=== PATIENT | female | born 1970 | race Caucasian/White ===

== ENCOUNTER 2021-04-21 13:00 | Inpatient (IN) | payer BC ==
[~2021-04-21] VITALS: Ht 170.2 cm; Wt 62.6 kg
--- NOTE | 2021-04-21 13:11 | NUR ---
PT c/o high blood pressure, denies any pain, 174/115, took all bp meds also bilateral hand tingling. PT A/OX4. TOLERATING R/A WELL WITH NO SOB. CONNECTED PT TO POX AND MONITOR.
--- NOTE | 2021-04-21 13:33 | NUR ---
DR TELLO AT BEDSIDE
--- NOTE | 2021-04-21 14:05 | NUR ---
BP 209/108, MD AWARE
[2021-04-21 14:18] LABS: BASOPHILS % (AUTO) 0.3 % (0.0-2.0); EOSINOPHILS % (AUTO) 0.2 % (0.0-6.0); HEMATOCRIT 44 % (33-45); LYMPHOCYTES # (AUTO) 1.3 K/uL (0.8-4.8); LYMPHOCYTES % (AUTO) 12.1 % (20.0-44.0); MEAN CORPUSCULAR HGB CONC 34 g/dl (31.0-36.0); MEAN CORPUSCULAR VOLUME 91 fL (82-100); MONOCYTES # (AUTO) 0.8 K/uL (0.1-1.30); MONOCYTES % (AUTO) 7.2 % (2.0-12.0); NEUTROPHILS # (AUTO) 8.7 K/uL (1.8-8.9); NEUTROPHILS % (AUTO) 80.2 % (43.0-81.0); PLATELET COUNT (AUTO) 310 K/uL (150-450); RED BLOOD CELL COUNT(AUTO) 4.85 MIL/uL (4.0-5.2); WHITE BLOOD COUNT (AUTO) 10.9 K/uL (4.3-11.0)
[2021-04-21] MEDS ORDERED: hydrALAZINE HCL IV 20 MG VIAL ONE (14:21)
[2021-04-21] MEDS ORDERED: hydrALAZINE HCL IV 20 MG VIAL IV ONE (14:30)
[2021-04-21] MEDS ORDERED: ONDANSETRON HCL/PF - ER 4 MG/2 ML VIAL IV ONE (14:30)
[2021-04-21] MEDS ORDERED: ONDANSETRON HCL/PF 4 MG/2 ML VIAL ONE ×2 (14:30→21:40)
[2021-04-21 14:43] LABS: CALCIUM, SERUM 9.9 mg/dL (8.5-10.1); CARBON DIOXIDE 32 mmol/L (21-32); CHLORIDE 95 mmol/L (98-107); CREATININE 0.7 mg/dL (0.6-1.3); GLUCOSE 87 mg/dL (74-106); POTASSIUM 3.6 mmol/L (3.5-5.1); SODIUM SERUM 137 mmol/L (136-145); UREA NITROGEN, BLOOD 9 mg/dL (7-18)
--- NOTE | 2021-04-21 15:41 | NUR ---
made md aware of current BP.
[2021-04-21] MEDS ORDERED: LABETALOL HCL IV 100MG VIAL ONE ×2 (15:47→17:36)
--- NOTE | 2021-04-21 15:51 | NUR ---
wheeled out via wheelchair by [employer] for ct scan
[2021-04-21] MEDS ORDERED: LABETALOL 20 MG/4 ML VIAL IV ONE ×3 (16:00→18:00)
[2021-04-21] MEDS ORDERED: TRAM50TA2 PO (16:05)
[2021-04-21] MEDS ORDERED: VALS320T16 PO (16:05)
[2021-04-21] MEDS ORDERED: LIRA0.6P2 SQ (16:05)
[2021-04-21] MEDS ORDERED: TEMA30CA PO (16:05)
[2021-04-21] MEDS ORDERED: LABE100T5 PO (16:05)
[2021-04-21] MEDS ORDERED: DULO30CA52 PO (16:05)
[2021-04-21] MEDS ORDERED: TIZA4CAP PO (16:05)
[2021-04-21] MEDS ORDERED: ALPRAZOLAM 0.5 MG TABLET ONE (16:23)
[2021-04-21] MEDS ORDERED: ALPRAZOLAM 0.5 MG TABLET PO ONE (16:30)
--- NOTE | 2021-04-21 17:49 | NUR ---
COVID AG SWAB DONE AND SENT TO LAB
[2021-04-21] MEDS ORDERED: TRAMADOL HCL 50 MG TABLET PO PRN (19:00)
[2021-04-21] MEDS ORDERED: NICARDIPINE HCL 50 MG in IV NS 0.9% 230 ML IV PRN (19:00)
--- NOTE | 2021-04-21 19:05 | NUR ---
AGUS CHANNEL ROUGHER AT BEDSIDE
--- NOTE | 2021-04-21 19:06 | NUR ---
ENDORSEMENT GIVEN TO NAVID GUZMAN FOR SUDEEP
--- NOTE | 2021-04-21 19:18 | NUR ---
CALLED PHARMACY REGARDING CARDENE. PT'S BP NOTED TO BE HIGH.
[2021-04-21] MEDS ORDERED: NICARDIPINE IN NACL, ISO-OSM 200 ML IV PRN (19:30)
[2021-04-21] MEDS: ACETAMINOPHEN 325 MG TABLET PO PRN ×2 (19:56→23:51)
[2021-04-21] MEDS ORDERED: ACETAMINOPHEN 325 MG TABLET ONE (19:56)
--- NOTE | 2021-04-21 20:24 | NUR ---
ICU 254
[2021-04-21] MEDS: ONDANSETRON HCL/PF 4 MG/2 ML VIAL IVP PRN (21:41)
--- NOTE | 2021-04-21 21:49 | NUR ---
TRANSFERRING PATIENT TO [facility] VIA ACLS
[2021-04-21 22:00] VITALS: BP 167/100
[2021-04-21] MEDS ORDERED: TIZANIDINE HCL 4 MG TABLET PO ONE (22:30)
[2021-04-21] MEDS: DULOXETINE HCL 30 MG CAPSULE.DR PO SCH ×2 (22:51→23:00)
[2021-04-21] MEDS: NYSTATIN (PYXIS) 500,000 UNIT/5 ML ORAL.SUSP PO SCH (22:51)
[2021-04-21] MEDS: TEMAZEPAM 15 MG CAPSULE PO PRN (22:51)
[2021-04-21] MEDS: hydrALAZINE HCL 50 MG TABLET PO PRN (22:52)
[2021-04-21] MEDS: ENOXAPARIN SODIUM 40 MG/0.4 ML DISP.SYRIN SQ SCH (22:54)
--- NOTE | 2021-04-21 23:00 | NUR ---
Patient arrived to [facility] at 2150 accompanied by ER staff via [employer]. Pt. currently c/o hot flash, nausea, muscle spasms, SOB, and heart palpations. Face is flushed and body is restless, visible twitching of hips and thigh muscles. A&Ox4. VS as follows: 167/100, temp 99.1, hr 79, O2 98% on RA, RR 18. Tele monitor applied currently SR in high 70s. Pupils equal and reactive to light. Heart rate and rhythm regular, lung sounds clear, bowel sounds hyperactive, can move extremities evenly. No skin issues. Denies pain. COVID vaccinated. [place] with hearing aids. Patient oriented to staff, unit protocols, call light, bed controls. Will continue with plan of care.
--- NOTE | 2021-04-21 23:01 | NUR ---
says okay to give first dose of zanaflex now d/t patient hasn't taken all day. Okay for xanax 0.5mg PO q12H PRN for anxiety. and hydralazine 50mg PO q4h PRN SBP >160.
--- NOTE | 2021-04-21 23:01 | NUR ---
pt. deandre cotter says it is too late and it will keep her up but she will take in the morning.
--- NOTE | 2021-04-21 23:18 | NUR ---
Zanaflex unavailable. Per provider on-call okay to give xanax now and painful muscle twitching should stop.
--- NOTE | 2021-04-21 23:26 | NUR ---
per MD nuno drip should be D/C'd.
[2021-04-21] MEDS: ALPRAZOLAM 0.25 MG TABLET PO PRN (23:51)
[2021-04-22] VITALS (7 sets, daily range): BP systolic 99–173; BP diastolic 60–107
--- NOTE | 2021-04-22 00:14 | NUR ---
Patient c/o hot flashes, sob despite O2 being 100%, heart palpitations, feeling of feet being cold but upper body being very hot. Gonzalo. hip and thigh twitching visible. Face is flushed. temp 98.1. B/P 173/107, HR 79 and SR on tele monitor. PRN Xanax and tylenol given. Will retake B/P in 30 minutes.
--- NOTE | 2021-04-22 00:56 | NUR ---
Patient B/P still 175/107 new order from Hydralazine 10mg IV q4h PRN for SBP >165.
[2021-04-22] MEDS: hydrALAZINE HCL IV 20 MG VIAL IV PRN ×2 (01:28→05:25)
--- NOTE | 2021-04-22 02:00 | NUR ---
B/P went down to 143/93, patient also reports feeling better.
--- NOTE | 2021-04-22 06:10 | NUR ---
0400 vitals taken at 0430. B/P 179/106, PRN hydralazine IV given. BP down to 144/94.
[2021-04-22 06:23] LABS: BASOPHILS # (AUTO) 0.1 K/uL (0.0-0.2); BASOPHILS % (AUTO) 0.5 % (0.0-2.0); EOSINOPHILS % (AUTO) 0.4 % (0.0-6.0); HEMATOCRIT 44 % (33-45); HEMOGLOBIN 14.9 g/dL (11.5-14.8); LYMPHOCYTES # (AUTO) 2.3 K/uL (0.8-4.8); LYMPHOCYTES % (AUTO) 20.7 % (20.0-44.0); MEAN CORPUSCULAR HGB CONC 34 g/dl (31.0-36.0); MEAN CORPUSCULAR VOLUME 92 fL (82-100); NEUTROPHILS # (AUTO) 7.7 K/uL (1.8-8.9); NEUTROPHILS % (AUTO) 69.4 % (43.0-81.0); PLATELET COUNT (AUTO) 336 K/uL (150-450); RED BLOOD CELL COUNT(AUTO) 4.76 MIL/uL (4.0-5.2)
--- NOTE | 2021-04-22 06:33 | NUR ---
Patient states she has been feeling better though unable to sleep and anxious because she wants to go home and does not know the reason behind her high B/P and it not responding to PO treatments. Reminded pt. solar energy installation manager and attending MD will see her in AM and more tests may be done for answers. Also, we will manage symptoms as well as B/P in the meantime. Pt. thankful.
[2021-04-22 06:58] LABS: CALCIUM, SERUM 9.9 mg/dL (8.5-10.1); CREATININE 0.8 mg/dL (0.6-1.3); MAGNESIUM 2.3 mg/dL (1.8-2.4); PHOSPHORUS 3.9 mg/dL (2.5-4.9); POTASSIUM 3.4 mmol/L (3.5-5.1)
--- NOTE | 2021-04-22 07:20 | NUR ---
RN OPENING NOTE RECEIVED PATIENT IN BED. A/O X4. ON ROOM AIR, TOLERATING WELL. DENIES SOB. IN NO APPARENT DISTRESS. ABLE TO MAKE NEEDS KNOWN. DENIES ANY PAIN AT THIS TIME. IV ACCESS ON R AC #18 AND L AC #20, INTACT AND PATENT. SAFETY MEASURES MAINTAINED. BED IN LOWEST POSITION, BRAKES, LOCKED. SIDE RAILS UP X2. CALL LIGHT WITHIN REACH. WILL CONTINUE PLAN OF CARE.
[2021-04-22] MEDS ORDERED: VALSARTAN 80 MG TABLET PO ONE (08:00)
[2021-04-22] MEDS: hydrALAZINE HCL 50 MG TABLET PO PRN (08:20)
[2021-04-22] MEDS: NYSTATIN (PYXIS) 500,000 UNIT/5 ML ORAL.SUSP PO SCH ×3 (08:20→16:07)
[2021-04-22] MEDS: DULOXETINE HCL 30 MG CAPSULE.DR PO SCH ×3 (08:20→16:08)
[2021-04-22] MEDS: LABETALOL HCL (100MG) 100 MG TABLET PO SCH ×2 (08:21→16:08)
[2021-04-22] MEDS: ONDANSETRON HCL/PF 4 MG/2 ML VIAL IVP PRN (08:58)
[2021-04-22] MEDS: hydrALAZINE HCL 50 MG TABLET PO SCH ×3 (09:00→16:07)
[2021-04-22] MEDS: AMLODIPINE BESYLATE 5 MG TABLET PO SCH (09:05)
--- NOTE | 2021-04-22 09:07 | NUR ---
RN NOTE HELD NEW ORDER OF HYDRALAZINE 50 MG PO. PATIENT WAS ALREADY GIVEN HYDRALAZINE 50 MG PO PRN BEFORE THE DOCTOR CHANGED THE ORDER TO SCHEDULED MEDS.
[2021-04-22] MEDS: NITROGLYCERIN 30 GM TUBE TP SCH ×2 (10:19→20:30)
[2021-04-22] MEDS ORDERED: POTASSIUM CHLORIDE 20 MEQ TAB.PRT.SR PO SCH (11:00)
[2021-04-22 11:20] LABS: THYROID STIMULATING HORMONE 2.869 uIU/mL (0.358-3.74)
[2021-04-22] MEDS: TIZANIDINE HCL 4 MG TABLET PO SCH ×2 (13:37→16:08)
--- NOTE | 2021-04-22 18:31 | NUR ---
RN CLOSING NOTE PATIENT RESTING IN BED. A/O X4. ON ROOM AIR, TOLERATING WELL. DENIES SOB. IN NO APPARENT DISTRESS. ABLE TO MAKE NEEDS KNOWN. NO REPORTS OF ANY PAIN AT THIS TIME. DUE MEDS GIVEN ORDERED. ALL NEEDS HAVE BEEN MET AND ATTENDED. IV ACCESS ON R AC #18 AND L AC #20, INTACT AND PATENT. SAFETY MEASURES MAINTAINED. BED IN LOWEST POSITION, BRAKES, LOCKED. SIDE RAILS UP X2. CALL LIGHT WITHIN REACH. WILL ENDORSE CONTINUITY OF CARE TO INCOMING SHIFT.
[2021-04-22] MEDS: ENOXAPARIN SODIUM 40 MG/0.4 ML DISP.SYRIN SQ SCH (19:03)
--- NOTE | 2021-04-22 19:57 | NUR ---
MS RN OPENING NOTE PATIENT RECEIVED AWAKE IN BED. NO S/S OF DISTRESS, BREATHING SYMMETRICAL. RAC #18, LAC#20 PATENT. SAFETY MEASURES IN PLACE: BED AT LOWEST POSITION, RAILS UP X2, CALL ROD WITHIN REACH. WILL CONTINUE TO MONITOR PATIENT.
--- NOTE | 2021-04-22 21:59 | NUR ---
MS RN NOTE PATIENT STATED SHE WAS NOT FEELING WELL AFTER HAVING THE NITROL ADMINISTERED. PATIENT STATED SHE FELT ANXIOUS. I SPOKE W MY CHARGE NURSE, BRITTON, AND SHE STATED WE SHOULD APPLY A TELE MONITOR WHICH WAS DONE. PATIENT WAS SR 85. JUST NOW PATIENT STATED SHE FEELS THE ANXIETY IS NOT WEARING OFF. SHE REFUSED THE NITROL PATCH AND WANTED IT REMOVED - WAS ADAMANT ABOUT IT. VS WERE RECHECKED WITH BP 130/89, P 77, O2SAT 100%. WILL CONTINUE TO MONITOR PATIENT.
[2021-04-22] MEDS: TEMAZEPAM 15 MG CAPSULE PO PRN (23:34)
[2021-04-23] MEDS: ALPRAZOLAM 0.25 MG TABLET PO PRN (00:20)
[2021-04-23] MEDS: hydrALAZINE HCL 50 MG TABLET PO PRN ×2 (01:04→06:46)
[2021-04-23 06:35] VITALS: BP 163/108
--- NOTE | 2021-04-23 07:03 | NUR ---
MS RN CLOSING NOTE PATIENT IS AWAKE IN BED. A/OX4. NO S/S OF DISTRESS; BREATHING SYMMETRICAL. SAFETY MEASURES IN PLACE: BED AT LOWEST POSITION, RAILS UP X2, CALL ROD WITHIN REACH. WILL ENDORSE TO NEXT SHIFT FOR SUDEEP.
--- NOTE | 2021-04-23 07:15 | NUR ---
MS RN OPENING NOTE PATIENT RECEIVED IN BED RESTING, AWAKE AND VERBALLY RESPONSIVE. A/O X4, ABLE TO MAKE NEEDS KNOWN. NO S/S OF DISTRESS, BREATHING EVEN AND UNLABORED, ON ROOM AIR. RAC #18, LAC#20 INTACT AND PATENT. AMBULATES W/ STEADY GAIT. SAFETY MEASURES IN PLACE: BED AT LOWEST POSITION, RAILS UP X2, CALL ROD WITHIN REACH. WILL CONTINUE TO MONITOR.
[2021-04-23 08:00] VITALS: BP 177/106
[2021-04-23] MEDS: NYSTATIN (PYXIS) 500,000 UNIT/5 ML ORAL.SUSP PO SCH ×2 (08:29→12:26)
[2021-04-23] MEDS: DULOXETINE HCL 30 MG CAPSULE.DR PO SCH (08:30)
[2021-04-23] MEDS: AMLODIPINE BESYLATE 5 MG TABLET PO SCH (08:30)
[2021-04-23] MEDS: TIZANIDINE HCL 4 MG TABLET PO SCH ×2 (08:30→12:27)
[2021-04-23] MEDS ORDERED: HYDR-4077 PO (08:52)
[2021-04-23] MEDS ORDERED: METO50TA16 PO (08:52)
[2021-04-23] MEDS ORDERED: AMLO-212 PO (08:52)
[2021-04-23] MEDS ORDERED: VALSARTAN 80 MG TABLET PO SCH (09:00)
[2021-04-23] MEDS ORDERED: TIZANIDINE HCL 4 MG TABLET PO SCH (09:00)
[2021-04-23] MEDS ORDERED: hydrALAZINE HCL 50 MG TABLET PO SCH (09:00)
[2021-04-23] MEDS ORDERED: METOPROLOL TARTRATE 50 MG TABLET PO SCH (09:00)
[2021-04-23 10:00] LABS: CALCIUM, SERUM 9.2 mg/dL (8.5-10.1); CREATININE 0.8 mg/dL (0.6-1.3); POTASSIUM 3.4 mmol/L (3.5-5.1)
[2021-04-23 12:00] VITALS: BP 116/77
[2021-04-23] MEDS: ACETAMINOPHEN 325 MG TABLET PO PRN (12:26)
--- NOTE | 2021-04-23 15:41 | NUR ---
RN NOTES BLOOD PRESSURE AT THIS TIME: 110/72.
--- NOTE | 2021-04-23 16:58 | NUR ---
RN NOTES PATIENT SEEN BY DR. DEL REAL W/ ORDER FOR DISCHARGE TO HOME ONCE BP IS STABLE (SBP <140). DISCHARGE INSTRUCTION AND EDUCATION PROVIDED TO PATIENT. DISCHARGE FORM AND BELONGINGS LIST FORM SIGNED BY PATIENT AND ALL BELONGINGS ACCOUNTED FOR. NO SKIN ISSUES NOTED. NAME ARMBAND AND IV LINE REMOVED. PATIENT IS AMBULATORY W/ STEADY GAIT; ACCOMPANIED PATIENT TO THE LOBBY AND PICKED UP BY FAMILY FRIEND. CHARGE NURSE AND MD AWARE OF DISCHARGE.
== END 2021-04-23 16:40 | disposition home or self-care (01) | DRG 305 ==
LOC: ER 13:00 → ICU 20:30 → MED 21:15 → TELE 04-23 08:51
PROVIDERS: ADMIT Nurse Practitioner Acute Care; ATTEND Internal Medicine
DX: I16.1 Hypertensive emergency (principal); B37.0 Candidal stomatitis; I10 Essential (primary) hypertension; B19.20 Unspecified viral hepatitis C without hepatic coma; G47.00 Insomnia, unspecified; E87.6 Hypokalemia; Z20.822 Contact with and (suspected) exposure to COVID-19; Z88.5 Allergy status to narcotic agent; Z79.899 Other long term (current) drug therapy; G89.29 Other chronic pain; Z78.0 Asymptomatic menopausal state
CPT/HCPCS: 36415; 70450-TC; 71045-TC; 80048-TC; 80061-TC; 83735-TC; 84100-TC; 84439-TC; 84443-TC; 84484-TC; 85025-TC; 87081-TC; 93307-TC; C9803; G0378; J0360; J1650; J2405; J3490

== ENCOUNTER 2021-08-15 00:45 | Emergency (ER) | payer BC ==
[~2021-08-15] VITALS: Ht 170.2 cm; Wt 77.1 kg
[~2021-08-15 00:45] MED LIST: AMLO-212 PO; DULO30CA52 PO; HYDR-4077 PO; LIRA0.6P2 SQ; METO50TA16 PO; TEMA30CA PO; TIZA4CAP PO; TRAM50TA2 PO; VALS320T16 PO
[2021-08-15] MEDS ORDERED: ONDANSETRON HCL/PF 4 MG/2 ML VIAL IVP ONE (01:00)
[2021-08-15] MEDS ORDERED: IV NS 0.9% 1,000 ML BAG IV ONE (01:00)
--- NOTE | 2021-08-15 01:00 | NUR ---
TO ER BED 2. BIBRA 86 FROM HOME C/O N/V S/P EATING SUSHI 2 HRS AGO. DENIES ANY CHEST PAIN OR SOB. CONNECTED TO MONITOR. PROVIDED EMESIS BAG. AWAITING MD BERNAL
[2021-08-15] MEDS ORDERED: ONDANSETRON HCL/PF 4 MG/2 ML VIAL ONE ×2 (01:15→02:16)
--- NOTE | 2021-08-15 01:24 | NUR ---
IV LINE ESTABLISHED, [id number]
[2021-08-15] MEDS ORDERED: ONDA4TAB5 PO (01:34)
[2021-08-15] MEDS ORDERED: ONDANSETRON HCL/PF 4 MG/2 ML VIAL IV ONE (02:30)
[2021-08-15] MEDS ORDERED: PROCHLORPERAZINE EDISYLATE 10 MG/2 ML VIAL ONE (02:58)
[2021-08-15] MEDS ORDERED: PROCHLORPERAZINE EDISYLATE 10 MG/2 ML VIAL IVP ONE (03:00)
[2021-08-15] MEDS ORDERED: hydrALAZINE HCL IV 20 MG VIAL ONE (03:48)
[2021-08-15] MEDS ORDERED: hydrALAZINE HCL IV 20 MG VIAL IV ONE (04:00)
--- NOTE | 2021-08-15 04:45 | NUR ---
IV removed. Catheter intact and site benign. Pressure and 4x4 applied to site. No bleeding noted.
--- NOTE | 2021-08-15 05:01 | NUR ---
Patient discharged to home in stable condition. Written and verbal after care instructions given. Patient verbalizes understanding of instruction.
[2021-08-15 05:02] VITALS: BP 140/89
== END 2021-08-15 05:02 | disposition home or self-care (01) ==
LOC: ER 00:59
DX: R11.2 Nausea with vomiting, unspecified (principal); I16.0 Hypertensive urgency; I10 Essential (primary) hypertension; Z88.6 Allergy status to analgesic agent; Z60.2 Problems related to living alone; Z79.899 Other long term (current) drug therapy
CPT/HCPCS: 96361; 96374; 96375; 96376; 99284; J0360; J0780; J2405 ×2; J7030

== ENCOUNTER 2022-01-10 18:38 | Emergency (ER) | payer BC ==
[~2022-01-10] VITALS: Ht 170.2 cm; Wt 59.9 kg
[~2022-01-10 18:38] MED LIST changes: +ONDA4TAB5 PO
--- NOTE | 2022-01-10 19:02 | NUR ---
BIB FRIEND C/O NAUSEA & VOMITING SINCE AFTERNOON, TOOK COMPAZINE 1800. PT A/OX4. TOLERATING R/A WELL WITH NO SOB. CONNECTED PT TO POX AND MONITOR. SAFETY MEASURES IN PLACE.
[2022-01-10] MEDS ORDERED: ONDANSETRON HCL/PF 4 MG/2 ML VIAL ONE ×2 (19:06→20:12)
[2022-01-10] MEDS ORDERED: METOCLOPRAMIDE HCL 10 MG/2 ML VIAL ONE (19:06)
--- NOTE | 2022-01-10 19:19 | NUR ---
IV LINE ESTABLISHED ON RAC #20, BLOOD DRAWN AND SENT TO LAB
[2022-01-10] MEDS ORDERED: IV NS 0.9% 1,000 ML BAG IV ONE (19:30)
[2022-01-10] MEDS ORDERED: ONDANSETRON HCL/PF 4 MG/2 ML VIAL IVP ONE (19:30)
[2022-01-10] MEDS ORDERED: METOCLOPRAMIDE HCL 10 MG/2 ML VIAL IV ONE (19:30)
[2022-01-10 20:13] LABS: BILIRUBIN,DIRECT 0.2 mg/dL (0.0-0.2); CALCIUM, SERUM 10.5 mg/dL (8.5-10.1); CREATININE 1.2 mg/dL (0.6-1.3); TOTAL PROTEIN, SERUM 8.5 g/dL (6.4-8.2)
[2022-01-10 20:16] LABS: BASOPHILS % (AUTO) 0.2 % (0.0-2.0); HEMATOCRIT 43 % (33-45); HEMOGLOBIN 14.6 g/dL (11.5-14.8); LYMPHOCYTES # (AUTO) 0.9 K/uL (0.8-4.8); LYMPHOCYTES % (AUTO) 7.1 % (20.0-44.0); MEAN CORPUSCULAR HGB CONC 34 g/dl (31.0-36.0); MEAN CORPUSCULAR VOLUME 89 fL (82-100); MONOCYTES # (AUTO) 0.9 K/uL (0.1-1.30); MONOCYTES % (AUTO) 7.3 % (2.0-12.0); NEUTROPHILS # (AUTO) 10.3 K/uL (1.8-8.9); NEUTROPHILS % (AUTO) 85.4 % (43.0-81.0); PLATELET COUNT (AUTO) 375 K/uL (150-450); RED BLOOD CELL COUNT(AUTO) 4.81 MIL/uL (4.0-5.2); WHITE BLOOD COUNT (AUTO) 12.1 K/uL (4.3-11.0)
--- NOTE | 2022-01-10 20:19 | NUR ---
PT NOTED WITH EMESIS X2. ADMINISTERED ZOFRAN 8MG IVP ORDERED. WILL REASSESS N/V IN 30 MINUTES
[2022-01-10] MEDS ORDERED: hydrALAZINE HCL IV 20 MG VIAL ONE (20:22)
[2022-01-10] MEDS ORDERED: ONDANSETRON HCL/PF 4 MG/2 ML VIAL IV ONE (20:30)
[2022-01-10] MEDS ORDERED: hydrALAZINE HCL IV 20 MG VIAL IV ONE (20:30)
[2022-01-10] MEDS ORDERED: PROC25SU31 RC (20:42)
--- NOTE | 2022-01-10 20:46 | NUR ---
Patient discharged to home in stable condition. Written and verbal after care instructions given. Patient verbalizes understanding of instruction. IV removed. Catheter intact and site benign. Pressure and 4x4 applied to site. No bleeding noted. PT ambulatory with a steady gait
[2022-01-10 20:47] VITALS: BP 181/147
== END 2022-01-10 20:48 | disposition home or self-care (01) ==
LOC: ER 18:47
DX: R11.2 Nausea with vomiting, unspecified (principal); I10 Essential (primary) hypertension; Z88.6 Allergy status to analgesic agent; Z60.2 Problems related to living alone; Z79.899 Other long term (current) drug therapy
CPT/HCPCS: 99284; 96374; 96375; 96361; 96376; 85025; 80048; 83690; 80076; 36415; J0360; J2765; J2405 ×2; J7030

== ENCOUNTER 2022-07-11 09:57 | Emergency (ER) | payer BC ==
[~2022-07-11] VITALS: Ht 170.2 cm; Wt 61.2 kg
[~2022-07-11 09:57] MED LIST changes: +PROC25SU31 RC
--- NOTE | 2022-07-11 09:57 | NUR ---
BIBA C/C CHEST PAIN. A/O X 3
--- NOTE | 2022-07-11 10:29 | NUR ---
IV SITE R AC 20G. PATENT AND INTACT.
[2022-07-11] MEDS ORDERED: LORAZEPAM 1 MG TABLET PO ONE (10:30)
[2022-07-11] MEDS ORDERED: ACETAMINOPHEN ES 500 MG TABLET PO ONE (10:30)
[2022-07-11] MEDS ORDERED: LORAZEPAM 1 MG TABLET ONE (10:35)
[2022-07-11] MEDS ORDERED: ACETAMINOPHEN ES 500 MG TABLET ONE (10:36)
[2022-07-11 10:47] LABS: BASOPHILS % (AUTO) 0.3 % (0.0-2.0); EOSINOPHILS % (AUTO) 1.3 % (0.0-6.0); HEMATOCRIT 37 % (33-45); HEMOGLOBIN 12.4 g/dL (11.5-14.8); LYMPHOCYTES # (AUTO) 1.3 K/uL (0.8-4.8); LYMPHOCYTES % (AUTO) 21.3 % (20.0-44.0); MEAN CORPUSCULAR HGB CONC 33 g/dl (31.0-36.0); MEAN CORPUSCULAR VOLUME 88 fL (82-100); MONOCYTES # (AUTO) 0.3 K/uL (0.1-1.30); MONOCYTES % (AUTO) 4.9 % (2.0-12.0); NEUTROPHILS # (AUTO) 4.6 K/uL (1.8-8.9); NEUTROPHILS % (AUTO) 72.2 % (43.0-81.0); PLATELET COUNT (AUTO) 283 K/uL (150-450); RED BLOOD CELL COUNT(AUTO) 4.22 MIL/uL (4.0-5.2); WHITE BLOOD COUNT (AUTO) 6.3 K/uL (4.3-11.0)
[2022-07-11 11:06] LABS: CALCIUM, SERUM 9.5 mg/dL (8.5-10.1); CARBON DIOXIDE 32 mmol/L (21-32); CHLORIDE 99 mmol/L (98-107); CREATININE 0.6 mg/dL (0.6-1.3); GLUCOSE 107 mg/dL (74-106); POTASSIUM 3.7 mmol/L (3.5-5.1); SODIUM SERUM 137 mmol/L (136-145); UREA NITROGEN, BLOOD 6 mg/dL (7-18)
[2022-07-11 11:21] LABS: ALANINE AMINOTRANSFERASE 20 U/L (12-78); ALBUMIN 4.3 g/dL (3.4-5.0); ALKALINE PHOSPHATASE 50 U/L (46-116); BILIRUBIN,DIRECT 0.2 mg/dL (0.0-0.2); BILIRUBIN,TOTAL 0.4 mg/dL (0.2-1.0); TOTAL PROTEIN, SERUM 7.8 g/dL (6.4-8.2)
[2022-07-11 11:38] LABS: ASPARTATE AMINOTRANSFERASE 19 U/L (15-37)
--- NOTE | 2022-07-11 12:07 | NUR ---
Patient discharged to home in stable condition. Written and verbal after care instructions given. Patient verbalizes understanding of instruction.
[2022-07-11 12:08] VITALS: BP 159/108
--- NOTE | 2022-07-11 12:08 | NUR ---
IV removed. Catheter intact and site benign. Pressure and 4x4 applied to site. No bleeding noted.
== END 2022-07-11 12:08 | disposition home or self-care (01) ==
LOC: ER 10:05
DX: R07.9 Chest pain, unspecified (principal); I10 Essential (primary) hypertension; Z88.8 Allergy status to other drugs, medicaments and biological substances; Z60.2 Problems related to living alone; Z79.899 Other long term (current) drug therapy
CPT/HCPCS: 36415; 71045-TC; 80048-TC; 80076-TC; 83880; 84484-TC; 85025-TC